=== PATIENT | male | born 1960 ===

== ENCOUNTER 2019-10-23 03:35 | Emergency (ER) | payer MEDICARE, OTHER ==
[~2019-10-23] VITALS: Ht 180.3 cm; Wt 84.1 kg
[2019-10-23 05:24] LABS: GLUCOSE,POINT OF CARE 236 MG/DL (70-110)
[2019-10-23] MEDS ORDERED: DIPH50CA35 PO (05:34)
[2019-10-23] MEDS ORDERED: HYDR-1475 PO (05:34)
[2019-10-23] MEDS ORDERED: CLON0.1T83 PO (05:34)
[2019-10-23] MEDS ORDERED: ASPI-728 PO (05:34)
[2019-10-23] MEDS ORDERED: INSU100I3 SQ (05:34)
[2019-10-23] MEDS ORDERED: HALO5TAB2 PO (05:34)
[2019-10-23] MEDS ORDERED: GABA-1181 PO (05:34)
[2019-10-23 05:53] VITALS: BP 139/72
== END 2019-10-23 06:24 | disposition home or self-care (01) ==
LOC: EDBD 03:35 → EMS 03:35
DX: E11.9 Type 2 diabetes mellitus without complications (principal); F20.9 Schizophrenia, unspecified; F31.9 Bipolar disorder, unspecified; I10 Essential (primary) hypertension; Z76.0 Encounter for issue of repeat prescription